=== PATIENT | female | born 1940 | race Caucasian/White ===

== ENCOUNTER 2021-03-28 01:01 | Inpatient (IN) | payer MEDICARE, SELFPAY ==
[2021-03-28] VITALS (29 sets, daily range): BP systolic 93–116; BP diastolic 55–78; PULSE 65–99; RESP 16–25; TEMP 35.9–37.1; O2SAT 92–100; BMI 26.4
--- NOTE | 2021-03-28 | ECHO_ITS ---
Patient Info Name: Evonne Maharaj Age: 81 years : 1940 Gender: Female Ht: 65 in Wt: 153 lbs BSA: 1.80 m2 HR: 68 bpm BP: 116 / 68 mmHg Heart Rhythm: Sinus Rhythm Technical Quality: Good Exam Date: 03/28/2021 11:31 AM Exam Location: [facility] Room: 200 Patient Status: Inpatient Admit Date: 03/28/2021 Staff Ordering Physician: Chuck Portillo MD Health Outreach Worker: Jody Jordan RDCS Attending Provider: Aleksander Noble MD Referring Physician: Lindsey CROWLEY; Exam Type: CA echo doppler color flow Study Info Indications - SOB Complete two-dimensional, color flow and Doppler transthoracic echocardiogram is performed. Summary 1. Complete two-dimensional, color flow and Doppler transthoracic echocardiogram is performed. 2. Mild concentric left ventricular hypertrophy. 3. Left ventricular systolic function is normal, estimated at 65-70%. 4. Left atrial chamber dimension is mildly enlarged. 5. The mitral valve annulus is mildly calcified. 6. There is mild aortic valve sclerosis. Left Ventricle Left ventricular chamber dimension is normal. Left ventricular systolic function is normal, estimated at 65-70%. The left ventricular diastolic function is grade I diastolic dysfunction. Mild concentric left ventricular hypertrophy. Right Ventricle Right ventricular chamber dimension is normal. Left Atria Left atrial chamber dimension is mildly enlarged. Right Atria Right atrial chamber dimension is normal. Aortic Valve The aortic valve is trileaflet. There is mild aortic valve sclerosis. Pulmonic Valve The pulmonic valve is not well visualized. Mitral Valve The mitral valve has normal leaflets. The mitral valve annulus is mildly calcified. Tricuspid Valve The tricuspid valve leaflets are normal. Pericardium/Pleural The pericardium appears normal. Aorta The aortic root size at the sinus of Valsalva is normal. Left Ventricular Outflow Tract Name Value Normal LVOT 2D LVOT Diameter 2.0 cm LVOT Doppler LVOT Peak Gradient 4 mmHg LVOT Mean Gradient 3 mmHg LVOT VTI 22 cm LVOT VTI/AV VTI Ratio 0.9 LVOT Stroke Volume 69 ml LVOT CO 14.8 l/min LVOT CI 8.2 l/min/m2 Pulmonic Valve Name Value Normal PV Doppler PV Peak Gradient 3 mmHg Mitral Valve Name Value Normal MV Doppler MV Decel [place] 339 cm/s2
--- NOTE | ~2021-03-28 | XR_ITS ---
EXAMINATION: XR chest 2V DATE: 03/30/2021 11:50 INDICATION: Pneumonia. TECHNIQUE: Frontal and lateral views of the chest were obtained. COMPARISON: Chest single view 03/28/2021, CT abdomen and pelvis 03/28/2021 FINDINGS: The lung volumes are small. There are airspace opacities in the mid and lower lung zones wi th a basilar predominance. No pleural effusion or pneumothorax. Cardiomegaly is noted. There is an el ectronic implant in left anterior chest wall. There are bilateral breast implants. Surgical clips in the right upper quadrant are likely from cholecystectomy. There are changes there are old healed righ t rib fractures. Of vertebroplasty at L1. There is an old healed right rib fracture. There is a commi nuted fracture of proximal right humerus. IMPRESSION: 1. Small lung volumes with stable airspace opacities in the mid and lower lung zones with a basilar p redominance, consistent with atelectasis versus pneumonia. 2. Cardiomegaly. 3. Comminuted fracture of proximal right humerus again seen. Reviewed, dictated and finalized at location B. IMPRESSION: 1. Small lung volumes with stable airspace opacities in the mid and lower lung zones with a basilar predominance, consistent with atelectasis versus pneumonia . 2. Cardiomegaly. 3. Comminuted fracture of proximal right humerus again seen.
--- NOTE | ~2021-03-28 | XR_ITS ---
EXAMINATION: XR chest 1V portable INDICATION: Fever and shortness of breath TECHNIQUE: Portable AP chest at 0123 hours COMPARISON: None available FINDINGS: There are airspace opacities of the lung bases. No pleural effusion or pneumothorax is iden tified. The heart border is obscured. Calcified atherosclerosis is noted. There is osteoarthritis of the shoulders. Healed right-sided rib fractures are noted. There is vertebroplasty change in the lumb ar spine. Surgical clips in the right upper quadrant are likely from prior cholecystectomy. IMPRESSION: 1. Bibasilar airspace opacities, consistent with atelectasis versus pneumonia. Reviewed, dictated and finalized at location A.
--- NOTE | ~2021-03-28 | CT_ITS ---
EXAMINATION: CT abdomen pelvis w con DATE: 03/28/2021 01:55 INDICATION: Left lower quadrant abdominal pain. TECHNIQUE: Computed tomography (CT) of the abdomen and pelvis was performed with 100 mL Omnipaque 350 intravenous contrast. Automated exposure control and iterative reconstruction technique were employe d. The dose-length product was 1051.97 mGy-cm. COMPARISON: None. FINDINGS: The visualized portions of the lung bases demonstrate mild atelectasis. There is a small le ft pleural effusion. There are bilateral breast implants. The heart size is normal. There are coronar y artery calcifications. No pericardial effusion. There is mild intrahepatic biliary duct dilatation, likely secondary to cholecystectomy. The spleen and adrenal glands are normal. There is a 6 mm cysti c lesion of the pancreas. There is cortical thinning of the kidneys. There are cysts in right kidney measuring up to 13 mm. There is a 3 mm stone in left kidney. There is a calcified fibroid in the uter us. There are scattered diverticula in the colon. There is mild fat stranding around the sigmoid dive rticulum, consistent with diverticulitis. There are no dilated loops of bowel. The appendix measures 15 mm in diameter, but no wall thickening or fat stranding to suggest appendicitis. There is a small sliding hiatal hernia. There are no pathologically enlarged lymph nodes. There is no free intraperito sana fluid. There is internal fixation of proximal right femur. There is lumbar levoscoliosis and sev ere spondylosis. There are multiple chronic vertebral body fractures in the spine. There are changes of vertebroplasty at L1. IMPRESSION: 1. Mild sigmoid diverticulitis. No perforation or abscess. 2. 6 mm cystic lesion of the pancreas. The differential diagnosis includes pseudocyst, intraductal pa pillary mucinous neoplasm (IPMN), mucinous cystic neoplasm (MCN), serous cystadenoma, and neuroendocr ine tumor. Abdomen MRI without and with contrast is recommended in 2 years. 3. Small sliding hiatal hernia. 4. Appendiceal diameter of 15 mm, but no wall thickening or fat stranding to suggest appendicitis. Reviewed, dictated and finalized at location B. IMPRESSION: 1. Mild sigmoid diverticulitis. No perforation or abscess. 2. 6 mm cystic lesion of the pancreas. The differential diagnosis includes pseu docyst, intraductal papillary mucinous neoplasm (IPMN), mucinous cystic neoplas m (MCN), serous cystadenoma, and neuroendocrine tumor. Abdomen MRI without and with contrast is recommended in 2 years. 3. Small sliding hiatal hernia. 4. Appendiceal diameter of 15 mm, but no wall thickening or fat stranding to [place] ggest appendicitis.
--- NOTE | 2021-03-28 01:06 | ECG_ITS ---
Measurements Intervals [place] Rate: 0 P: MN: 0 QRS: QRSD: 0 T: QT: 0 QTc: 0 Interpretive Statements SINUS RHYTHM INCOMPLETE RIGHT BUNDLE BRANCH BLOCK BASELINE ARTIFACT- I, II, III, AVR, AVL, AVF, V1-V6 BORDERLINE ECG Electronically Signed On 03-28-2021 7:23:22 CDT by Dev Mcguire D.O.
--- NOTE | 2021-03-28 01:10 | ED.ABDPAIN ---
HPI - Abdominal Pain General Chief Complaint: Abdominal Pain Stated Complaint: chest pain Time Seen by Provider: 03/28/21 01:07 History of Present Illness HPI narrative: 81 yo female presents to the ED for Abdominal pain. She reports that she has had this pain throughout the day. No radiation. Feels dull. Reported fever of 101 at the group home. She is noted to be mildly hypoxic on room air. She denies CP, SOB, nausea, vomiting, diarrhea. Related Data Home Medications Medication Instructions Recorded Confirmed Ferrex 150 03/28/21 L.acidoph,saliva-B.bif-S.therm cap PO 03/28/21 [Acidophilus Probiotic Blend] acetaminophen 500 mg PO Q6H PRN 03/28/21 albuterol sulfate 2 inh INHALATION Q6H 03/28/21 aspirin PO 03/28/21 atorvastatin 03/28/21 calcium carbonate 500 mg PO BID 03/28/21 furosemide 20 mg PO DAILY 03/28/21 lactulose [Enulose] 03/28/21 melatonin 5 mg PO HS PRN 03/28/21 metoprolol tartrate 50 mg PO Q12H 03/28/21 oxycodone 03/28/21 polyethylene glycol 3350 [Miralax] 03/28/21 sennosides [Senexon] mg 03/28/21 tuberculin PPD [Tubersol] INTRADERMAL 03/28/21 03/28/21 Allergies Allergy/AdvReac Type Severity Reaction Status Date / Time No Known Allergies Allergy Verified 03/28/21 01:52 Review of Systems Review of Systems: All systems reviewed & are unremarkable except as noted in HPI and below Genitourinary: Genitourinary: Denies hematuria and Denies dysuria [facility] Past Medical History Medical History (Updated 03/28/21 @ 03:18 by Chuck Portillo MD) Humerus fracture Social History Social History (Updated 03/28/21 @ 03:12 by Chuck Portillo MD) Substance use: never Exam Const: General: no acute distress and alert Orientation/consciousness: patient oriented x3 HENMT: Mouth: Yes dry mucous membranes Neck: Neck: normal visual inspection Resp: Effort & Inspection: normal respiratory effort Auscultation: crackles bilateral at the base Cardio: Rate: regular rate Rhythm: regular rhythm GI: GI Palp: Yes Tenderness to palpation present (GI) (LLQ), No Guarding due to palpation present (GI) and No Rebound tenderness present Skin: General skin exam: normal color Neuro: General: patient oriented x3 and moves all extremities Speech: normal speech Extrem: General: normal to inspection Course Vital Signs Vital signs: Vital Signs Temperature 36.9 C 03/28/21 01:00 Pulse Rate 85 03/28/21 01:00 Respiratory Rate 25 H 03/28/21 01:00 Blood Pressure 93/65 L 03/28/21 01:00 Pulse Oximetry 94 03/28/21 01:00 Temperature 36.9 C 03/28/21 01:00 Pulse Rate 74 03/28/21 02:28 Respiratory Rate 17 03/28/21 02:28 Blood Pressure 97/58 L 03/28/21 02:28 Pulse Oximetry 94 03/28/21 01:00 MDM - Abdominal Pain MDM Narrative Medical decision making narrative: She has diverticulitis and likely pneumonia. Mildly elevated troponin, probably incidental Differential Diagnosis Differential diagnosis: Likely acute appendicitis, diverticulitis, pancreatitis and small bowel obstruction Medical Records Attestation: I reviewed the patient's medical records. Lab Data Attestation: I reviewed the patient's lab results. Result diagrams: 03/28/21 01:15 03/28/21 01:14 Labs: Lab Results 03/28/21 03/28/21 03/28/21 Range/Units 01:14 01:14 01:14 WBC (4.5-10.0) K/mm3 RBC (4.2-5.4) M/mm3 Hgb (12.0-15.0) g/dL Hct (37.0-47.0) % MCV (80-100) fl MCH (26-34) pg MCHC (32-36) g/dl RDW (11.5-14.5) % Plt Count (150-375) k/mm3 MPV (7.4-10.4) fl Immature Gran % (Auto) (0-0.5) % Neut % (Auto) (45.5-73.1) % Lymph % (Auto) (18.3-44.2) % [place] % (Auto) (2.6-8.5) % Eos % (Auto) (0-4.4) % Baso % (Auto) (0.2-1.2) % Lymph # (Auto) (0.9-3.2) K/mm3 [place] # (Auto) (0.1-0.6) K/mm3 Eos # (Auto) (0-0.3) K/mm3 Baso # (Auto) (0.0-0.1) K/mm3 Abs Immat Gran (auto)
[2021-03-28 01:22] LABS: Basophils Percent Auto 0.3 % (0.2-1.2); Eosinophils Absolute Auto 0.1 K/mm3 (0-0.3); Eosinophils Percent Auto 0.9 % (0-4.4); Hemoglobin 11.8 g/dL (12.0-15.0); Immature Granulocyte Absolute 0.08 K/mm3 (0.00-0.031); Immature Granulocyte Percent A 0.7 % (0-0.5); Lymphocytes Absolute Auto 1.31 K/mm3 (0.9-3.2); Mean Corpuscular HGB Conc 31.9 g/dl (32-36); Mean Corpuscular Hemoglobin 29.1 pg (26-34); Mean Corpuscular Volume 91.1 fl (80-100); Mean Platelet Volume 8.6 fl (7.4-10.4); Monocytes Absolute Auto 1.2 K/mm3 (0.1-0.6); Neutrophils Absolute Auto 9.2 K/mm3 (1.3-6.7); Neutrophils Percent Auto 77.1 % (45.5-73.1); Platelet Count Result 402 k/mm3 (150-375); Red Blood Count 4.06 M/mm3 (4.2-5.4); Red Cell Distribution Width 13.4 % (11.5-14.5)
[2021-03-28 01:33] LABS: Lactic Acid Reflex 1.8 mmol/L (0.7-2.1)
[2021-03-28 01:34] LABS: INR 1.1; Prothrombin Time 14.3 Seconds (11.1-14.7)
[2021-03-28 01:35] LABS: Partial Thromboplastin Time 32.5 SECONDS (22.3-36.8)
[2021-03-28 01:37] LABS: Alanine Aminotransferase 29 U/L (4-35); Albumin Level 3.4 g/dL (3.5-5.1); Alkaline Phosphatase 195 U/L (38-126); Anion Gap 4 mmol/L (8-16); Aspartate Amino Transferase 32 U/L (14-36); Bilirubin,Total 0.8 mg/dL (0.2-1.3); Blood Urea Nitrogen 19 mg/dL (7-17); CRP 6.8 mg/dL (<1.0); Calcium 9.6 mg/dL (8.4-10.2); Carbon Dioxide 29 mmol/L (22-30); Chloride 102 mmol/L (98-107); Estimated Glomerular Filt Rate 53; Glucose 120 mg/dL (65-105); Lipase 41 U/L (23-300); Sodium 135 mmol/L (137-145)
--- NOTE | 2021-03-28 01:40 | PC.NURSE ---
Pt to imaging at this time. Discussed straight catheterization with pt upon return.
[2021-03-28 01:53] LABS: Troponin I 0.073 ng/mL (0.000-0.034)
--- NOTE | 2021-03-28 02:16 | PC.NURSE ---
this rn gave [facility] update on pt.
[2021-03-28 02:18] LABS: Add Urine Microscopic? NO; Appearance Urine Clear (Clear); Bilirubin Urine Negative (Negative); Blood Urine Negative (Negative); Color Urine Yellow (Yellow); Glucose Urine UA Negative (Negative); Ketones Urine Negative (Negative); Leukocyte Esterase Ur Negative LEU/UL (Negative); Nitrate Urine Negative (Negative); Protein Urine Negative (Negative); Specific Grav Ur 1.021 (1.001-1.035); Urobilinogen Urine Negative mg/dL (<2.0)
--- NOTE | 2021-03-28 04:59 | PC.NURSE ---
Attempted to call for report. Will wait for return call from ED.
--- NOTE | 2021-03-28 05:00 | PC.NURSE ---
Report received from RUSLAN Prieto.
--- NOTE | 2021-03-28 05:04 | PM.IMHP ---
H&P: HPI History of Present Illness Date/Time: 03/28/21 05:04 Chief Complaint: Indigestion Narrative: This is a 81-year-old female with past medical history significant for asthma, dyslipidemia, hypertension, shoulder fracture right right-sided patient was at [facility] for rehabilitation after she suffered a fall and fractured her shoulder she was seen at outside hospital. Patient has been in her usual state of health other than these undergoing rehabilitation she had indigestion all day Sunday and she was brought to the emergency room. She denies any pain or burning with urination no real rigors no chills no fevers no nausea no vomiting no diarrhea she has left upper quadrant pain, no shortness of breath no cough no sputum production no chest pain. Preliminary workup was significant for a CT of abdomen and pelvis with diverticulitis and infiltrates bilateral bibasal of the lungs. Review of Systems Review of Systems: Narrative: Patient states that she had indigestion all day Sunday. Constitutional: Constitutional: Denies chills, Denies fatigue, Denies fever(s), Denies malaise and Denies weakness Eyes: Eyes: Denies change in vision ENT: Denies nasal congestion and Denies nasal discharge Cardiovascular: Cardiovascular: Denies chest pain, Denies lightheadedness, Denies palpitations, Denies dyspnea, Denies dyspnea on exertion and Denies orthopnea Respiratory: Respiratory: Reports pain on inspiration and Denies dyspnea Comments: Left upper quadrant pain with deep inspiration Gastrointestinal: Gastrointestinal: Reports belching, Reports dyspepsia, Denies heartburn, Denies diarrhea, Denies nausea and Denies vomiting Genitourinary: Genitourinary: Denies dysuria Musculoskeletal: Comments: Right shoulder fracture Integumentary/Breasts: Skin/Breast: Denies rash Neurologic: Denies focal weakness and Denies Sensory deficit (Neuro) Psychiatric: Psychiatric: Reports no additional psychiatric complaints Endocrine: Endocrine: Reports no additional endocrine complaints Hematologic/Lymphatic: Hematologic/Lymphatic: Reports no additional hematologic/lymphatic complaints Allergic/Immunologic: Allergic/Immunologic: Reports no additional allergic/immunologic complaints [facility] Past Medical History Medical History (Updated 03/28/21 @ 05:16 by Aleksander Noble MD) Humerus fracture Social History Social History (Updated 03/28/21 @ 03:12 by Chuck Portillo MD) Substance use: never Meds Home Medications and Allergies Home Medications Medication Instructions Recorded Confirmed Type Ferrex 150 03/28/21 History L.acidoph,saliva-B.bif-S.therm cap PO 03/28/21 History [Acidophilus Probiotic Blend] acetaminophen 500 mg PO Q6H PRN 03/28/21 History albuterol sulfate 2 inh INHALATION Q6H 03/28/21 History aspirin PO 03/28/21 History atorvastatin 03/28/21 History calcium carbonate 500 mg PO BID 03/28/21 History furosemide 20 mg PO DAILY 03/28/21 History lactulose [Enulose] 03/28/21 History melatonin 5 mg PO HS PRN 03/28/21 History metoprolol tartrate 50 mg PO Q12H 03/28/21 History oxycodone 03/28/21 History polyethylene glycol 3350 [Miralax] 03/28/21 History sennosides [Senexon] mg 03/28/21 History tuberculin PPD [Tubersol] INTRADERMAL 03/28/21 03/28/21 History Allergies Allergy/AdvReac Type Severity Reaction Status Date / Time No Known Allergies Allergy Verified 03/28/21 01:52 Vital Signs Vital Signs - 24 hr 03/28/21 01:00 03/28/21 01:17 03/28/21 01:58 Temperature 98.5 F Pulse Rate 90 99 79 Respiratory Rate 25 H 25 H 24 H Blood Pressure 93/65 L 93/58 L 94/62 L Pulse Oximetry 94 03/28/21 02:01 03/28/21 02:28 03/28/21 02:38 Temperature Pulse Rate 76 74 72 Respiratory Rate 24 H 17 25 H Blood Pressure 100/55 L 97/58 L 98/60 L Pulse Oximetry 03/28/21 03:00 03/28/21 03:15 03/28/21 03:30 Temperature Pulse Rate 73 69 69 Respiratory Rate 24 H 24 H 24 H Blood Pressure 99/
[2021-03-28 05:10] LABS: Troponin I 0.071 ng/mL (0.000-0.034)
--- NOTE | 2021-03-28 05:34 | ADMGEN ---
This patient, Evonne Maharaj, was admitted to IMU Room 200-01 on 03/28/21 at 0515. Patient/family oriented to hospital policies and general routines including ID bracelet, bed and alarms, visiting hours, pain management, procedures, bathroom and other care routines, personal items, smoking policy, room service/diet, and visiting hours. Information on how to activate the Rapid Response Team has been discussed. Patient/Family are encouraged to report perceived risks to care and to ask questions if they do not understand what they are told or what they should do.
[2021-03-28] MEDS: oxyCODONE HCL (*CRX) 5 MG TAB IR PO ×2 (07:03→18:02)
[2021-03-28] MEDS: LACTATED RINGERS 1,000 ML 50 ML IV CONT ×2 (07:04→18:02)
[2021-03-28] MEDS: ASPIRIN 81 MG CHEWABLE TABLET PO (08:43)
[2021-03-28] MEDS: METOPROLOL TARTRATE 50 MG TAB PO ×2 (08:43→20:08)
[2021-03-28] MEDS: POLYSACCHARIDE IRON COMPLEX 150 MG CAPSULE PO (08:44)
[2021-03-28] MEDS: LIDOCAINE 5% PATCH 2 PATCH TOPICAL (08:44)
[2021-03-28] MEDS: FUROSEMIDE 20 MG TABLET PO (08:44)
[2021-03-28] MEDS: ATORVASTATIN 20 MG TABLET PO (08:44)
--- NOTE | 2021-03-28 14:53 | PM.IMPN ---
Progress Note: A&P Assessment and Plan (1) Sepsis: Qualifiers: Sepsis acute organ dysfunction status: without acute organ dysfunction Code(s): A41.9 - Sepsis, unspecified organism Status: Acute Assessment and Plan: ON IV antibiotic Await cultures Likely secondary to diverticulitis and pneumonia Can have a full diet today. [facility] [id number], BC is pending (2) Diverticulitis: Code(s): K57.92 - Diverticulitis of intestine, part unspecified, without perforation or abscess without bleeding Status: Acute Assessment and Plan: Started on broad-spectrum antibiotic (3) Pneumonia: Code(s): J18.9 - Pneumonia, unspecified organism Status: Acute Assessment and Plan: Patient with bilateral bibasilar infiltrate possible aspiration pneumonia On IV Zosyn and iv vancomycin (4) Elevated troponin: Code(s): R77.8 - Other specified abnormalities of plasma proteins Status: Acute Assessment and Plan: Patient with a slightly elevated troponin possible secondary to sepsis Pt can be transferred to medical floor. Subjective Date/time seen: 03/28/21 14:53 Interval history: 81-year-old female with past medical history significant for asthma, dyslipidemia, hypertension, shoulder fracture right right-sided patient was at [facility] for rehabilitation after she suffered a fall and fractured her shoulder she was seen at outside hospital. Pt feels unwell admitted with pneumonia and diverticulitis Review of Systems Review of Systems: All systems reviewed & are unremarkable except as noted in HPI and below Exam Narrative: Exam Narrative: Pt elderly very tired and weak Const: Orientation/consciousness: patient oriented x3 Resp: Effort & Inspection: normal respiratory effort and able to speak in complete sentences Auscultation: clear to auscultation bilaterally Cardio: Jugular venous distension: no JVD Rate: regular rate Rhythm: regular rhythm Heart sounds: S1 normal heart sound present and S2 normal heart sound present GI: Inspection: other (ttp on left lower side ) Skin: Rashes: no rashes Wounds: no wounds Neuro: General: patient oriented x3 and CN's II-XI intact bilaterally Cranial nerves: Yes CN's II-XII intact bilaterally and Yes Equal, round and reactive pupils present Cognition (Neuro): normal cognition Speech: normal speech Gait exam (Neuro): Normal gait present Motor exam (neuro): 5/5 motor strength present throughout Sensory Exam: No Sensory deficit (Neuro) Extrem: General: normal to inspection, full ROM, no pedal edema and other (Right shoulder sling in place) Psych: Appearance: grossly normal Mental Status: mental status grossly normal Speech and movement: Normal speech and movement present Affect: normal affect Attitude: cooperative Thought process: Normal thought process present Insight: Good insight present (Psych) Judgement: Good judgement present (Psych) Objective Data Vital Signs Vital Signs: Vital Signs - 24 hr 03/28/21 01:00 03/28/21 01:17 03/28/21 01:58 Temperature 36.9 C Pulse Rate 90 99 79 Respiratory Rate 25 H 25 H 24 H Blood Pressure 93/65 L 93/58 L 94/62 L Pulse Oximetry 94 03/28/21 02:01 03/28/21 02:28 03/28/21 02:38 Temperature Pulse Rate 76 74 72 Respiratory Rate 24 H 17 25 H Blood Pressure 100/55 L 97/58 L 98/60 L Pulse Oximetry 03/28/21 03:00 03/28/21 03:15 03/28/21 03:30 Temperature Pulse Rate 73 69 69 Respiratory Rate 24 H 24 H 24 H Blood Pressure 99/61 L 96/59 L 95/60 L Pulse Oximetry 03/28/21 03:45 03/28/21 04:15 03/28/21 04:30 Temperature Pulse Rate 70 73 68 Respiratory Rate 24 H 17 24 H Blood Pressure 104/64 105/78 101/59 L Pulse Oximetry 03/28/21 04:45 03/28/21 05:20 03/28/21 05:25 Temperature 37.1 C Pulse Rate 69 68 68 Respiratory Rate 24 H 18 18 Blood Pressure 104/62 116/68 Pulse Oximetry 97 97 03/28/21 08:36 03/28/21 08:43 03/28/21 09:
--- NOTE | 2021-03-28 17:09 | PC.NURSE ---
Multiple calls to Dr Zapien r/t medication clarifications with no response.
--- NOTE | 2021-03-28 17:58 | PC.NURSE ---
This patient, Evonne Maharaj, was transferred to [facility] on 03/28/21 at 1759. Personal belongings sent with patient. Report given to RUSLAN Lugo. Appropriate documentation sent with patient.
--- NOTE | 2021-03-28 18:21 | ADMGEN ---
This patient, Evonne Maharaj, was admitted to 3 Med Surg Room 301-01. Patient/family oriented to hospital policies and general routines including ID bracelet, bed and alarms, visiting hours, pain management, procedures, bathroom and other care routines, personal items, smoking policy, room service/diet, and visiting hours. Information on how to activate the Rapid Response Team has been discussed. Patient/Family are encouraged to report perceived risks to care and to ask questions if they do not understand what they are told or what they should do.
[2021-03-29 09:04] VITALS: BP 107/58; PULSE 87; RESP 16; TEMP 36.5; O2SAT 97
[2021-03-29 09:32] VITALS: PULSE 87
[2021-03-29] MEDS: ENOXAPARIN 40 MG/0.4 ML SYRINGE SUB-Q (09:32)
[2021-03-29] MEDS: FUROSEMIDE 20 MG TABLET PO (09:32)
[2021-03-29] MEDS: POLYSACCHARIDE IRON COMPLEX 150 MG CAPSULE PO (09:32)
[2021-03-29] MEDS: ASPIRIN 81 MG CHEWABLE TABLET PO (09:32)
[2021-03-29] MEDS: METOPROLOL TARTRATE 50 MG TAB PO ×2 (09:32→20:44)
[2021-03-29] MEDS: ATORVASTATIN 20 MG TABLET PO (09:32)
[2021-03-29] MEDS: LIDOCAINE 5% PATCH 2 PATCH TOPICAL (09:33)
--- NOTE | 2021-03-29 13:33 | PM.IMPN ---
Progress Note: A&P Assessment and Plan (1) Sepsis: Qualifiers: Sepsis acute organ dysfunction status: without acute organ dysfunction Code(s): A41.9 - Sepsis, unspecified organism Status: Acute Assessment and Plan: ON IV antibiotic Await cultures Likely secondary to diverticulitis and pneumonia Can have a full diet today. [facility] [id number], BC is pending 03/29/21 13:33 Patient is 81-year-old female currently in the rehab at [facility] apparently patient had a complaint of upset stomach and patient was sent to emergency department for further evaluation CT scan of the abdomen showed patient has a diverticulitis as well as bilateral lower base pneumonia, patient is being treated Zosyn and vancomycin, however patient's CT scan also showed Mild sigmoid diverticulitis. No perforation or abscess. 2. 6 mm cystic lesion of the pancreas. The differential diagnosis includes pseudocyst, intraductal papillary mucinous neoplasm (IPMN), mucinous cystic neoplasm (MCN), serous cystadenoma, and neuroendocrine tumor. Abdomen MRI without and with contrast is recommended in 2 years. Will consult GI for further recommendation, will continue present management, will continue PT OT and further recommendation to follow (2) Diverticulitis: Code(s): K57.92 - Diverticulitis of intestine, part unspecified, without perforation or abscess without bleeding Status: Acute Assessment and Plan: Started on broad-spectrum antibiotic (3) Pneumonia: Code(s): J18.9 - Pneumonia, unspecified organism Status: Acute Assessment and Plan: Patient with bilateral bibasilar infiltrate possible aspiration pneumonia On IV Zosyn and iv vancomycin (4) Elevated troponin: Code(s): R77.8 - Other specified abnormalities of plasma proteins Status: Acute Assessment and Plan: Patient with a slightly elevated troponin possible secondary to sepsis Pt can be transferred to medical floor. Subjective Date/time seen: 03/29/21 13:33 Patient is 81-year-old female currently in the rehab at [facility] apparently patient had a complaint of upset stomach and patient was sent to emergency department for further evaluation CT scan of the abdomen showed patient has a diverticulitis as well as bilateral lower base pneumonia, patient is being treated Zosyn and vancomycin, however patient's CT scan also showed Mild sigmoid diverticulitis. No perforation or abscess. 2. 6 mm cystic lesion of the pancreas. The differential diagnosis includes pseudocyst, intraductal papillary mucinous neoplasm (IPMN), mucinous cystic neoplasm (MCN), serous cystadenoma, and neuroendocrine tumor. Abdomen MRI without and with contrast is recommended in 2 years. Will consult GI for further recommendation, will continue present management, will continue PT OT and further recommendation to follow Review of Systems Review of Systems: All systems reviewed & are unremarkable except as noted in HPI and below Exam Narrative: Exam Narrative: Patient is comfortable, NAD HEENT: eyes are clear and none icteric LUNGS:CTA HEART: RR S1S2 ABD: BS+, Soft and nontender Lower extremities: no edema SKIN: nonjaundiced Neuro: grossly intact. Objective Data Vital Signs Vital Signs: Vital Signs - 24 hr 03/28/21 16:11 03/28/21 18:10 03/28/21 18:36 Temperature 96.7 F L 98.0 F Pulse Rate 78 77 Respiratory Rate 16 16 Blood Pressure 116/61 110/61 Pulse Oximetry 96 96 95 03/28/21 20:00 03/28/21 20:08 03/28/21 20:45 Temperature Pulse Rate 80 Respiratory Rate Blood Pressure Pulse Oximetry 95 92 03/28/21 23:59 03/29/21 09:04 03/29/21 09:32 Temperature 97.4 F L 97.7 F Pulse Rate 75 87 87 Respiratory Rate 18 16 Blood Pressure 107/66 107/58 L Pulse Oximetry 94 97 Intake/Output Intake/Output: Intake & Output 03/26/21 03/27/21 03/28/21 03/29/21 23:59 23:59 23:59 23:59 Intake Total 1930 1330 Output Total 400 600 Balance
[2021-03-29 14:00] VITALS: BP 94/54; PULSE 68; RESP 16; TEMP 36.3; O2SAT 94
--- NOTE | 2021-03-29 16:14 | WPDGICN ---
Assessment and Plan Assessment and plan (1) Diverticulitis: Code(s): K57.92 - Diverticulitis of intestine, part unspecified, without perforation or abscess without bleeding Status: Acute Assessment and Plan: her pain seems to be significantly better. Discussed with her the pathophysiology of diverticulitis. I explained that as we advanced her diet which should be able to get her on oral antibiotics. That time she could go home. We will plan to perform a colonoscopy in about 4 weeks to ensure that there was nothing else abnormal. CT report shows: 1. Mild sigmoid diverticulitis. No perforation or abscess. 2. 6 mm cystic lesion of the pancreas. The differential diagnosis includes pseudocyst, intraductal papillary mucinous neoplasm (IPMN), mucinous cystic neoplasm (MCN), serous cystadenoma, and neuroendocrine tumor. Abdomen MRI without and with contrast is recommended in 2 years. 3. Small sliding hiatal hernia. 4. Appendiceal diameter of 15 mm, but no wall thickening or fat stranding to suggest appendicitis. have personally reviewed this study (2) Pancreatic cyst: Code(s): K86.2 - Cyst of pancreas Status: Acute Assessment and Plan: Radiology recommended an MRI in 2 years. I would actually do it sooner, 6-12 months. I reassured the patient that this is almost certainly a benign cyst. It does not look worrisome GI Consult Note Consult date/time: 03/29/21 16:14 HPI: Evonne Maharaj is a 81 year old female was admitted 2 days ago because of abdominal pain. She was found on CT scan to have acute diverticulitis. Also a cyst was seen in her pancreas. She normally is in assisted living but for the past month has been at [facility] because of a fractured shoulder. She has also been found to have pneumonia. She denies any previous history of colon diseases. She believes her last colonoscopy was normal several years ago. Denies recent nausea vomiting change in appetite dysphagia or significant weight loss. Her gallbladder has been removed. She denies any history of liver disease or pancreatic disease Review of Systems Review of Systems: All systems reviewed & are unremarkable except as noted in HPI and below [facility] Past Medical History Medical History (Updated 03/29/21 @ 16:18 by Harjinder Cornejo MD) Humerus fracture Surgical History Surgical History (Updated 03/29/21 @ 16:16 by Harjinder Cornejo MD) Status post cholecystectomy Family History Family History Father Diverticulitis Acute myocardial infarction Congestive heart failure Mother Autosomal recessive severe combined immunodeficiency disease Sibling Parkinsons disease Social History Social History Smoking status: Never smoker Second hand tobacco smoke exposure: Yes Alcohol intake: never Substance use: never Gender identity (if verbalized by the patient): Female Spiritual care concerns: Yes (Adventism) Meds Home Medications and Allergies Home Medications Medication Instructions Recorded Confirmed Type L.acidoph,saliva-B.bif-S.therm 1 cap PO DAILY 03/28/21 03/28/21 History [Acidophilus Probiotic Blend] acetaminophen 1,000 mg PO Q6H PRN 03/28/21 03/28/21 History albuterol sulfate 2 inh INHALATION Q6H PRN 03/28/21 03/28/21 History aspirin [Aspirin Low Dose] 81 mg PO DAILY 03/28/21 03/28/21 History atorvastatin 20 mg PO DAILY 03/28/21 03/28/21 History calcium carbonate [Antacid 1,250 mg PO BID 03/28/21 03/28/21 History (calcium carbonate)] cholecalciferol (vitamin D3) 25 mcg PO DAILY 03/28/21 03/28/21 History [Vitamin D3] docusate sodium [Stool Softener] 100 mg PO BID 03/28/21 03/28/21 History furosemide 20 mg PO DAILY 03/28/21 03/28/21 History lactulose [Enulose] 10 g PO TID PRN 03/28/21 03/28/21 History lidocaine [Lidocaine Pain Relief] 2 patch TOPICAL BID 03/28/21
[2021-03-29] MEDS: LACTATED RINGERS 1,000 ML 50 ML IV CONT (19:08)
[2021-03-29 20:44] VITALS: PULSE 66
[2021-03-29 22:00] VITALS: BP 112/55; PULSE 80; RESP 20; TEMP 36.6; O2SAT 97
[2021-03-30 05:39] VITALS: BP 121/67; PULSE 73; RESP 20; TEMP 36.4; O2SAT 92
[2021-03-30 06:09] LABS: Hematocrit 31.9 % (37.0-47.0); Hemoglobin 10.1 g/dL (12.0-15.0); Mean Corpuscular HGB Conc 31.7 g/dl (32-36); Mean Corpuscular Hemoglobin 28.6 pg (26-34); Mean Corpuscular Volume 90.4 fl (80-100); Mean Platelet Volume 9.3 fl (7.4-10.4); Platelet Count Result 340 k/mm3 (150-375); Red Blood Count 3.53 M/mm3 (4.2-5.4); Red Cell Distribution Width 13.4 % (11.5-14.5); White Blood Count 6.5 K/mm3 (4.5-10.0)
[2021-03-30 06:25] LABS: Anion Gap 6 mmol/L (8-16); Blood Urea Nitrogen 14 mg/dL (7-17); Calcium 8.7 mg/dL (8.4-10.2); Carbon Dioxide 28 mmol/L (22-30); Chloride 105 mmol/L (98-107); Estimated CRCL calculation 40 ml/min; Estimated Glomerular Filt Rate 60; Glucose 92 mg/dL (65-105); Potassium 3.6 mmol/L (3.4-5.0); Sodium 139 mmol/L (137-145)
--- NOTE | 2021-03-30 07:20 | WPDGIPROGNO ---
Progress Note: A&P Assessment and Plan (1) Diverticulitis: Code(s): K57.92 - Diverticulitis of intestine, part unspecified, without perforation or abscess without bleeding Status: Acute Assessment and Plan: from my perspective she could be discharged on a low residue diet and 5 more days of oral antibiotics will schedule her for colonoscopy to be done in 3 or 4 weeks to ensure that there is no other pathology other than diverticulitis. Subjective Date/time seen: 03/30/21 07:20 she is tolerating a low-fiber diet. Denies any abdominal pain today. She is very quiet, taciturn. Review of Systems Review of Systems: All systems reviewed & are unremarkable except as noted in HPI and below Exam Const: General: alert Orientation/consciousness: patient oriented x3 Resp: Auscultation: clear to auscultation bilaterally Cardio: Rhythm: regular rhythm GI: GI Palp: Yes Soft to palpation and No Tenderness to palpation present (GI) Neuro: General: patient oriented x3 Objective Data Vital Signs Vital Signs: Vital Signs - 24 hr 03/29/21 09:04 03/29/21 09:32 03/29/21 14:00 Temperature 36.5 C 36.3 C L Pulse Rate 87 87 68 Respiratory Rate 16 16 Blood Pressure 107/58 L 94/54 L Pulse Oximetry 97 94 03/29/21 20:44 03/29/21 22:00 03/30/21 05:39 Temperature 36.6 C 36.4 C Pulse Rate 66 80 73 Respiratory Rate 20 20 Blood Pressure 112/55 L 121/67 Pulse Oximetry 97 92 Intake/Output Intake/Output: Intake & Output 03/27/21 03/28/21 03/29/21 03/30/21 23:59 23:59 23:59 23:59 Intake Total 1930 3220 250 Output Total 400 900 Balance 1530 2320 250 Meds/Results Medications: Active Medications Generic Name Dose Route Start Last Admin Trade Name Freq PRN Reason Stop Dose Admin Acetaminophen 1,000 mg 03/28/21 06:03 Acetaminophen 500 Mg Tablet PO Q6H PRN Pain Rated 1-3 Albuterol 2 puff 03/28/21 06:03 Albuterol Sulfate (*Sp) Aerosol 1 Puff INHALATION Q6H PRN Wheezing Aspirin 81 mg 03/28/21 08:00 03/29/21 09:32 Aspirin 81 Mg Chewable Tablet PO 81 mg DAILY@0800 EFFIE Administration Atorvastatin Calcium 20 mg 03/28/21 09:00 03/29/21 09:32 Atorvastatin 20 Mg Tablet PO 20 mg DAILY EFFIE Administration Calcium Carbonate 500 mg 03/28/21 09:00 Calcium Carbonate (Oscal) 500 Mg Tablet PO 04/27/21 09:01 BID [facility] Calcium Carbonate 500 mg 03/28/21 09:00 03/29/21 09:32 Calcium/Vitamin D 500 Mg Tablet PO 500 mg QAM EFFIE Administration Enoxaparin Sodium 40 mg 03/29/21 09:00 03/29/21 09:32 Enoxaparin 40 Mg/0.4 Ml Syringe SUB-Q 40 mg DAILY EFFIE Administration Furosemide 20 mg 03/28/21 09:00 03/29/21 09:32 Furosemide 20 Mg Tablet PO 20 mg DAILY EFFIE Administration Lactated Ringer's 1,000 mls @ 50 mls/hr 03/28/21 02:45 03/29/21 19:08 Lr - Lactated Ringers Iv IV CONT 50 mls/hr .Q20H [facility] Administration Piperacillin Sod/Tazobactam Sod 2.25 gm in 50 mls @ 100 mls/hr 03/28/21 09:00 03/30/21 03:00 Zosyn 2.25 Gm/D5w 50 Ml IVPB 100 mls/hr Q6H [facility] Administration Lactulose 10 gm 03/28/21 06:03 Lactulose 20 Gm/30 Ml Udc PO TID PRN Constipation Lidocaine 2 patch 03/28/21 09:00 03/29/21 09:33 Lidocaine 5% Patch TOPICAL 2 patch DAILY [facility] Administration Melatonin 5 mg 03/28/21 06:03 Melatonin 5 Mg Tablet PO HS PRN Sleep Metoprolol Tartrate 50 mg 03/28/21 09:00 03/29/21 20:44 Metoprolol Tartrate 50 Mg Tab PO 50 mg Q12HR [facility] Administration Non-Formulary Medication 25 mcg 03/28/21 09:00 Calcium-Folic Acid-Vitamin D PO 04/27/21 09:01 DAILY [facility] Non-Formulary Medication 1 cap 03/28/21 09:00 L.Acidoph,Saliva-B.Bif-S.Therm [Acidophilus Probiotic Blend] PO 04/27/21 09:01 DAILY [facility] Ondansetron HCl 4 mg 03/28/21 02:44 Ondansetron Inj 4 Mg/2 Ml Vial IV PUSH Q4H PRN Nausea Oxycodone HCl 5 mg 03/28/21 06:03 03/28/21
[2021-03-30 09:08] VITALS: PULSE 75
[2021-03-30] MEDS: ENOXAPARIN 40 MG/0.4 ML SYRINGE SUB-Q (09:08)
[2021-03-30] MEDS: POLYSACCHARIDE IRON COMPLEX 150 MG CAPSULE PO (09:08)
[2021-03-30] MEDS: ATORVASTATIN 20 MG TABLET PO (09:08)
[2021-03-30] MEDS: ACIDOPHILUS/BULGARICUS CHEWABLE TABLET 1 TABLET BY MOUTH (09:08)
[2021-03-30] MEDS: METOPROLOL TARTRATE 50 MG TAB PO (09:08)
[2021-03-30] MEDS: LIDOCAINE 5% PATCH 2 PATCH TOPICAL (09:09)
[2021-03-30] MEDS: ASPIRIN 81 MG CHEWABLE TABLET PO (09:09)
[2021-03-30] MEDS: FUROSEMIDE 20 MG TABLET PO (09:09)
--- NOTE | 2021-03-30 12:20 | PM.DS ---
DS: Admitting Diagnosis Admitting Diagnosis Admitting Diagnosis: Indigestion DS: Discharge Diagnosis Discharge Diagnosis (1) Sepsis: Qualifiers: Sepsis acute organ dysfunction status: without acute organ dysfunction Code(s): A41.9 - Sepsis, unspecified organism Status: Acute Assessment and Plan: ON IV antibiotic Await cultures Likely secondary to diverticulitis and pneumonia Can have a full diet today. [facility] [address], BC is pending 03/29/21 13:33 Patient is 81-year-old female currently in the rehab at [facility] apparently patient had a complaint of upset stomach and patient was sent to emergency department for further evaluation CT scan of the abdomen showed patient has a diverticulitis as well as bilateral lower base pneumonia, patient is being treated Zosyn and vancomycin, however patient's CT scan also showed Mild sigmoid diverticulitis. No perforation or abscess. 2. 6 mm cystic lesion of the pancreas. The differential diagnosis includes pseudocyst, intraductal papillary mucinous neoplasm (IPMN), mucinous cystic neoplasm (MCN), serous cystadenoma, and neuroendocrine tumor. Abdomen MRI without and with contrast is recommended in 2 years. Will consult GI for further recommendation, will continue present management, will continue PT OT and further recommendation to follow (2) Diverticulitis: Code(s): K57.92 - Diverticulitis of intestine, part unspecified, without perforation or abscess without bleeding Status: Acute Assessment and Plan: Started on broad-spectrum antibiotic (3) Pneumonia: Code(s): J18.9 - Pneumonia, unspecified organism Status: Acute Assessment and Plan: Patient with bilateral bibasilar infiltrate possible aspiration pneumonia On IV Zosyn and iv vancomycin (4) Elevated troponin: Code(s): R77.8 - Other specified abnormalities of plasma proteins Status: Acute Assessment and Plan: Patient with a slightly elevated troponin possible secondary to sepsis Pt can be transferred to medical floor. DS: Summary Hospital Course Reason for hospitalization: Chief Complaint: Indigestion Narrative: This is a 81-year-old female with past medical history significant for asthma, dyslipidemia, hypertension, shoulder fracture right right-sided patient was at [facility] for rehabilitation after she suffered a fall and fractured her shoulder she was seen at outside hospital. Patient has been in her usual state of health other than these undergoing rehabilitation she had indigestion all day Sunday and she was brought to the emergency room. She denies any pain or burning with urination no real rigors no chills no fevers no nausea no vomiting no diarrhea she has left upper quadrant pain, no shortness of breath no cough no sputum production no chest pain. Preliminary workup was significant for a CT of abdomen and pelvis with diverticulitis and infiltrates bilateral bibasal of the lungs. Hospital Course: Patient is 81-year-old female currently in the rehab at [facility] patient had a complaint of upset stomach and patient was sent to emergency department for further evaluation CT scan of the abdomen showed patient has a diverticulitis as well as bilateral lower base pneumonia, patient is being treated Zosyn and vancomycin, however patient's CT scan also showed Mild sigmoid diverticulitis. No perforation or abscess. 2. 6 mm cystic lesion of the pancreas. The differential diagnosis includes pseudocyst, intraductal papillary mucinous neoplasm (IPMN), mucinous cystic neoplasm (MCN), serous cystadenoma, and neuroendocrine tumor. Abdomen MRI without and with contrast is recommended in 2 years. Will consult GI for further recommendation, will continue present management, will continue PT OT and further recommendation to follow Patient was seen by GI recommending to discharge the patient 5 days oral antibiotic, patient will follow up with GI in 1 month to have colonoscopy fo
[2021-03-30 14:44] VITALS: O2SAT 92
== END 2021-03-30 14:45 | DRG 871 ==
LOC: ANHED 03:18 → ANHIMU 06:36 → ANH3MEDSUR 03-29 10:30 → ANHIMU 04-01 12:33
PROVIDERS: Admitting Provider Internal Medicine; Emergency Provider Emergency Medicine; PCP Family Medicine; Visit Provider Family Medicine
DX: A41.9 Sepsis, unspecified organism (principal); J18.9 Pneumonia, unspecified organism; K57.32 Diverticulitis of large intestine without perforation or abscess without bleeding; K86.2 Cyst of pancreas; R77.8 Other specified abnormalities of plasma proteins; J45.909 Unspecified asthma, uncomplicated; E78.5 Hyperlipidemia, unspecified; I10 Essential (primary) hypertension; Z79.899 Other long term (current) drug therapy
CPT/HCPCS: 36415; 51701; 71045; 71046; 74177; 80048; 80053; 81003; 83605; 83690; 84484; 85025; 85027; 85610; 85730; 86140; 87040; 93005; 93306; 97110; 97116; 97161; 97165; 97535; 99285; A9270; J1650; J2543; J3370; J7120; Q9967